=== PATIENT | female | born 1950 | race Caucasian/White ===

== ENCOUNTER 2019-09-28 15:15 | Inpatient (IN) | payer MEDICARE, MEDICAID ==
[~2019-09-28] VITALS: Ht 157.5 cm; Wt 54.5 kg
[2019-09-28] MEDS ORDERED: ASPI-1152 PO (15:34)
[2019-09-28] MEDS ORDERED: ATOR10TA PO (15:34)
[2019-09-28] MEDS ORDERED: AMLO5TAB9 PO (15:34)
[2019-09-28] MEDS ORDERED: CYAN-51 PO (15:34)
[2019-09-28] MEDS ORDERED: METF500T20 PO (15:34)
[2019-09-28] MEDS ORDERED: ZOLP5TAB8 PO (15:34)
[2019-09-28] MEDS ORDERED: RISP0.253 PO ×2 (15:35)
[2019-09-28] MEDS ORDERED: risperiDONE 1 MG TABLET ONE (16:25)
[2019-09-28] MEDS ORDERED: risperiDONE 0.25 MG TABLET PO ONE ×2 (16:26→16:30)
[2019-09-28 16:34] LABS: BASOPHILS # (AUTO) 0.1 /CMM (0.0-0.2); EOSINOPHILS % (AUTO) 1.6 % (0.0-6.0); HEMATOCRIT 39 % (33-45); HEMOGLOBIN 12.6 g/dL (11.5-14.8); LYMPHOCYTES # (AUTO) 1.4 /CMM (0.8-4.8); LYMPHOCYTES % (AUTO) 23.1 % (20.0-44.0); MEAN CORPUSCULAR HGB CONC 33 g/dl (31.0-36.0); MEAN CORPUSCULAR VOLUME 86 fL (82-100); MONOCYTES # (AUTO) 0.4 /CMM (0.1-1.30); MONOCYTES % (AUTO) 6.5 % (2.0-12.0); NEUTROPHILS # (AUTO) 3.9 /CMM (1.8-8.9); NEUTROPHILS % (AUTO) 66.8 % (43.0-81.0); PLATELET COUNT (AUTO) 293 /CMM (150-450); RED BLOOD CELL COUNT(AUTO) 4.54 MIL/uL (4.0-5.2); WHITE BLOOD COUNT (AUTO) 5.8 K/uL (4.3-11.0)
[2019-09-28 16:35] LABS: APPEARANCE,URINE Slightly Cloudy (CLEAR); BILIRUBIN,URINE Negative (NEGATIVE); BLOOD, URINE Trace-intact Ery/uL (NEGATIVE); COLOR,URINE Light yellow (YELLOW); KETONES,URINE Negative (NEGATIVE); LEUKOCYTE ESTERASE ,URINE Negative (NEGATIVE); NITRITE, URINE Positive (NEGATIVE); PH,URINE 6.5 (5.0-8.0); PROTEIN,URINE Negative (NEGATIVE); UGLUCOSE Negative (NEGATIVE); UROBILINOGEN,URINE 0.2 EU/dL (0.2)
--- NOTE | 2019-09-28 16:37 | NUR ---
Patient awake alert noted calm non distress med given ,lab draws done continue to monitor
[2019-09-28 16:46] LABS: CALCIUM, SERUM 9.2 mg/dL (8.5-10.1); CARBON DIOXIDE 27 mmol/L (21-32); CHLORIDE 107 mmol/L (98-107); CREATININE 0.7 mg/dL (0.6-1.3); GLUCOSE 101 mg/dL (74-106); POTASSIUM 3.8 mmol/L (3.5-5.1); SODIUM SERUM 143 mmol/L (136-145); UREA NITROGEN, BLOOD 18 mg/dL (7-18)
[2019-09-28 16:47] LABS: BACTERIA,URINE 4+ /HPF (None Seen); SQUAMOUS EPITHELIAL CELL,UR Few /HPF (None Seen)
[2019-09-28 17:00] LABS: ACETAMINOPHEN < 2 ug/ml (10-30); ALANINE AMINOTRANSFERASE 26 U/L (12-78); ALBUMIN 3.6 g/dL (3.4-5.0); ALCOHOL, BLOOD < 3 mg/dL (0-0); ALKALINE PHOSPHATASE 89 U/L (46-116); ASPARTATE AMINOTRANSFERASE 18 U/L (15-37); BILIRUBIN,DIRECT 0.1 mg/dL (0.0-0.2); BILIRUBIN,TOTAL 0.3 mg/dL (0.2-1.0); SALICYLATE 1.1 mg/dL (2.8-20.0); TOTAL PROTEIN, SERUM 6.8 g/dL (6.4-8.2)
--- NOTE | 2019-09-28 18:45 | NUR ---
Patient alert to name and confused @ time no agitation @ this time continue to monitor
--- NOTE | 2019-09-28 19:14 | NUR ---
DR. JARQUIN NOTIFIED OF PATIENT'S 0122.
--- NOTE | 2019-09-28 19:20 | NUR ---
Mattress Renovator @ bedside
--- NOTE | 2019-09-28 19:21 | NUR ---
Patient now is 5150 given report to Benito manceraRN
--- NOTE | 2019-09-28 19:32 | NUR ---
BED ASSIGNMENT 219T
--- NOTE | 2019-09-28 19:41 | NUR ---
REPORT GIVEN TO BRIGHT LOZANO
[2019-09-28 20:00] VITALS: BP 130/70
[2019-09-28] MEDS ORDERED: ZOLPIDEM TARTRATE 5 MG TABLET PO PRN (20:00)
[2019-09-28 20:05] VITALS: BP 134/69
[2019-09-28] MEDS ORDERED: MAGNESIUM HYDROXIDE 30 ML UDC PO PRN (20:30)
[2019-09-28] MEDS ORDERED: ACETAMINOPHEN 325 MG TABLET PO PRN (20:30)
[2019-09-28] MEDS ORDERED: BLOOD SUGAR DIAGNOSTIC 1 EACH STRIP IN ONE (20:30)
[2019-09-28] MEDS ORDERED: MAG HYDROX/AL HYDROX/SIMETH 30 ML UDC PO PRN (20:30)
[2019-09-28] MEDS ORDERED: QUETIAPINE FUMARATE 25 MG TABLET PO PRN (21:00)
[2019-09-28] MEDS ORDERED: QUETIAPINE FUMARATE 25 MG TABLET PO SCH (21:00)
[2019-09-28] MEDS: CEPHALEXIN MONOHYDRATE 500 MG CAPSULE PO SCH (21:39)
[2019-09-28] MEDS: ATORVASTATIN 10 MG TABLET PO SCH (21:40)
--- NOTE | 2019-09-28 23:56 | NUR ---
ADMISSION NOTES: ADMITTED THIS 69Y/O FEMALE PATIENT ADMIT FROM [facility]/ INTALLIY FROM [facility] , PT ADMITTED TO GPS ON 5150 HOLD DANGER TO OTHERS , GRAVELY DISABLE , PER HOLD CONFUSED DISORGNIZED, DISORIENTED, REFUSING CARE, PT. ELOPED FROM THE FACILITY FOR 2 DAYS, AND PT. STATED I DONT KNOW WHY I AM HERE ,UPON FACE TO FACE ASSESSMENT PATIENT IS A&O X ,1 CONFUSED DISORGNIZED, DISORIENTED ANXIOUS, FLAT AFFECT, DISHELVED, ,EASILY GETS AGITATED, DENIES SI/HI AT THIS TIME , PT. IS POOR HISTORIAN, POOR INSIGHT ,POOR JUDGEMENT , PT. REFUSED TO TAKE SHOWER AT THIS TIME , PT. REFUSED TO SIGNS ADMISSION CONSENT PAPERS , DUE TO MENTAL STATUS CONFUSE , PT. REFUSED INTITAALY BODY SKIN ASSESSMENT, PER PT. MY SKIN IS FINE , ENCOURAGED, EXPLAINED RISKS AND BENEFITS STILL REFUSED , BOTH MD AWARE AND NOTIFIED OF THE ADMISSION, BELONGINGS CONTRABAND WERE DONE , NURSING ASSESSMENT DONE ,PT. RIGHTS DISCUSS BY AUTO DEALERSHIP PORTER , PROVIDE THE PT. WITH HANDBOOK, AND MEDICATIONS GUIDE, ENVIRONMENTAL SAFETY CHECK DONE, ENCOURAGED PT. VERBALIZED ANY FEELING CONCERN TO STAFF, ORIENT TO UNIT POLICY, NO ACUTE DISTRESS NOTED,VITAL SIGNS WNL ,DENIES ANY PAIN AT THIS TIME ,WILL CONTINUE TO MONITOR FOR Q15 SAFETY AND BEHAVIOR.
--- NOTE | 2019-09-29 05:53 | NUR ---
RN NOTES: PT. RESTING COMFORTABLY IN HER ROOM, NO ACUTE DISTRESS DISTRESS NOTED , NO BEHAVIOUR PROBLEM NOTED AT THIS TIME , WILL CONTINUE TO MONITOR.
[2019-09-29 07:12] LABS: ALBUMIN 3.4 g/dL (3.4-5.0); BILIRUBIN,TOTAL 0.4 mg/dL (0.2-1.0); CALCIUM, SERUM 8.9 mg/dL (8.5-10.1); CHOLESTEROL 153 mg/dL (<200); CREATININE 0.7 mg/dL (0.6-1.3); HDL CHOLESTEROL 49 mg/dL (40-60); LDL 80 mg/dL (0-99); POTASSIUM 3.8 mmol/L (3.5-5.1); TRIGLYCERIDES 165 mg/dL (30-150)
[2019-09-29 08:00] VITALS: BP 123/69
[2019-09-29] MEDS: METFORMIN XR 500 MG TAB.SR.24H PO SCH (08:20)
[2019-09-29] MEDS: CEPHALEXIN MONOHYDRATE 500 MG CAPSULE PO SCH (08:20)
[2019-09-29] MEDS: AMLODIPINE BESYLATE 5 MG TABLET PO SCH (08:21)
[2019-09-29] MEDS: CYANOCOBALAMIN 500 MCG TABLET PO SCH (08:21)
[2019-09-29] MEDS ORDERED: ASPIRIN EC 81 MG TABLET.DR PO SCH (09:00)
--- NOTE | 2019-09-29 12:43 | NUR ---
Caregiver Contact: SW called caregiver [facility] ([phone]) to receive collateral information in regarding the psychosocial assessment. Caregiver was able to give minimal information. Caregiver stated that pt can return to [facility] ([phone]).
--- NOTE | 2019-09-29 12:46 | NUR ---
Initial Discharge Plan: Pt currently resides at [facility] located at [address] [place] [address]; ([phone]). EVELYNE spoke with pts caregiver [facility] ([phone]) and she stated that pt can return to the facility. EVELYNE will work with the pt and the MD regarding appropriate discharge planning. EVELYNE will form a safe and proper discharge.
[2019-09-29 15:58] VITALS: BP 108/59
[2019-09-29] MEDS: OLANZAPINE 2.5 MG TABLET PO SCH (17:20)
[2019-09-29] MEDS: DIVALPROEX SODIUM 125 MG TABLET.DR PO SCH (17:20)
[2019-09-29 20:12] VITALS: BP 111/59
[2019-09-29] MEDS: ZOLPIDEM TARTRATE 5 MG TABLET PO PRN (21:38)
[2019-09-29] MEDS: ATORVASTATIN 10 MG TABLET PO SCH (21:38)
[2019-09-30 08:00] VITALS: BP 120/68
[2019-09-30] MEDS: OLANZAPINE 2.5 MG TABLET PO SCH ×2 (08:22→16:40)
[2019-09-30] MEDS: CYANOCOBALAMIN 500 MCG TABLET PO SCH (08:22)
[2019-09-30] MEDS: METFORMIN XR 500 MG TAB.SR.24H PO SCH (08:23)
[2019-09-30] MEDS: AMLODIPINE BESYLATE 5 MG TABLET PO SCH (08:23)
[2019-09-30] MEDS: DIVALPROEX SODIUM 125 MG TABLET.DR PO SCH ×2 (08:23→16:40)
[2019-09-30] MEDS: CEPHALEXIN MONOHYDRATE 500 MG CAPSULE PO SCH ×2 (11:03→21:32)
[2019-09-30 16:00] VITALS: BP 122/59
[2019-09-30 20:14] VITALS: BP 115/50
[2019-09-30] MEDS: ATORVASTATIN 10 MG TABLET PO SCH (21:32)
[2019-10-01] MEDS ORDERED: ASPIRIN 325 MG TABLET ONE (00:15)
[2019-10-01 08:00] VITALS: BP 113/84
[2019-10-01] MEDS: CEPHALEXIN MONOHYDRATE 500 MG CAPSULE PO SCH ×2 (08:25→20:41)
[2019-10-01] MEDS: AMLODIPINE BESYLATE 5 MG TABLET PO SCH (08:25)
[2019-10-01] MEDS: CYANOCOBALAMIN 500 MCG TABLET PO SCH (08:25)
[2019-10-01] MEDS: DIVALPROEX SODIUM 125 MG TABLET.DR PO SCH ×3 (08:25→20:41)
[2019-10-01] MEDS: OLANZAPINE 2.5 MG TABLET PO SCH (08:25)
[2019-10-01] MEDS: METFORMIN XR 500 MG TAB.SR.24H PO SCH (08:25)
[2019-10-01 16:00] VITALS: BP 126/55
[2019-10-01 20:30] VITALS: BP 99/51
[2019-10-01] MEDS: OLANZAPINE 5 MG TABLET PO SCH (20:45)
[2019-10-01] MEDS: ATORVASTATIN 10 MG TABLET PO SCH (21:04)
[2019-10-01] MEDS: ZOLPIDEM TARTRATE 5 MG TABLET PO PRN (21:04)
[2019-10-02 08:00] VITALS: BP 119/54
[2019-10-02] MEDS: METFORMIN XR 500 MG TAB.SR.24H PO SCH (08:26)
[2019-10-02] MEDS: CYANOCOBALAMIN 500 MCG TABLET PO SCH (08:26)
[2019-10-02] MEDS: DIVALPROEX SODIUM 125 MG TABLET.DR PO SCH ×3 (08:26→21:17)
[2019-10-02] MEDS: CEPHALEXIN MONOHYDRATE 500 MG CAPSULE PO SCH ×2 (08:26→21:24)
[2019-10-02] MEDS: AMLODIPINE BESYLATE 5 MG TABLET PO SCH (08:27)
[2019-10-02] MEDS ORDERED: OLANZAPINE 2.5 MG TABLET PO SCH (09:00)
[2019-10-02 16:00] VITALS: BP 113/67
[2019-10-02 20:17] VITALS: BP 124/65
[2019-10-02] MEDS: OLANZAPINE 5 MG TABLET PO SCH (21:24)
[2019-10-02] MEDS: ATORVASTATIN 10 MG TABLET PO SCH (22:03)
[2019-10-02] MEDS: ZOLPIDEM TARTRATE 5 MG TABLET PO PRN (22:05)
--- NOTE | 2019-10-02 22:06 | NUR ---
AMBIEN 5MG 1 TAB PO ADMINISTERED PRN FOR SLEEP PER PATIENT REQUEST AT 2205
--- NOTE | 2019-10-02 23:31 | NUR ---
REASSESSED PT AT 2305. PT SLEEPING, RESPIRATION EVEN AND UNLABORED, NO S/S OF DISTRESS. WILL CONTINUE TO MONITOR.
--- NOTE | 2019-10-03 07:14 | NUR ---
PT AWAKE, ALERT AND ORIENTED X2. PACING HALLWAY, INTERMITTENTLY CONFUSED, FOLLOWS REDIRECTION. NO S/S OF DISTRESS. ENDORSED TO NEXT SHIFT.
[2019-10-03 08:00] VITALS: BP 129/71
[2019-10-03] MEDS: CYANOCOBALAMIN 500 MCG TABLET PO SCH (08:20)
[2019-10-03] MEDS: DIVALPROEX SODIUM 125 MG TABLET.DR PO SCH ×3 (08:20→20:57)
[2019-10-03] MEDS: AMLODIPINE BESYLATE 5 MG TABLET PO SCH (08:20)
[2019-10-03] MEDS: METFORMIN XR 500 MG TAB.SR.24H PO SCH (08:20)
[2019-10-03] MEDS: CEPHALEXIN MONOHYDRATE 500 MG CAPSULE PO SCH (08:20)
[2019-10-03] MEDS: OLANZAPINE 2.5 MG TABLET PO SCH (08:22)
[2019-10-03 16:00] VITALS: BP 102/60
--- NOTE | 2019-10-03 19:16 | NUR ---
GPS/RN NOTE: PATIENT IN BED AWAKE, ALERT AND ORIENTED X2, NOT IN ANY FORM OF DISTRESS. SAFETY PRECAUTIONS IMPLEMENTED. WILL CONTINUE TO MONITOR PT'S SAFETY AND BEHAVIOR.
[2019-10-03 20:38] VITALS: BP 119/68
[2019-10-03] MEDS: OLANZAPINE 5 MG TABLET PO SCH (20:57)
[2019-10-03] MEDS: ATORVASTATIN 10 MG TABLET PO SCH (21:01)
[2019-10-03 21:43] VITALS: BP 128/63
[2019-10-04 08:00] VITALS: BP 103/73
[2019-10-04] MEDS: OLANZAPINE 2.5 MG TABLET PO SCH (08:17)
[2019-10-04] MEDS: AMLODIPINE BESYLATE 5 MG TABLET PO SCH (08:17)
[2019-10-04] MEDS: CYANOCOBALAMIN 500 MCG TABLET PO SCH (08:17)
[2019-10-04] MEDS: DIVALPROEX SODIUM 125 MG TABLET.DR PO SCH ×3 (08:17→21:20)
[2019-10-04] MEDS: METFORMIN XR 500 MG TAB.SR.24H PO SCH (08:17)
[2019-10-04 16:00] VITALS: BP 103/59
[2019-10-04] MEDS: OLANZAPINE 5 MG TABLET PO SCH (21:19)
[2019-10-04] MEDS: ATORVASTATIN 10 MG TABLET PO SCH (21:20)
[2019-10-05 08:00] VITALS: BP 109/51
[2019-10-05 08:04] LABS: VALPROIC ACID 68 ug/mL (50-100)
[2019-10-05] MEDS: OLANZAPINE 2.5 MG TABLET PO SCH (08:19)
[2019-10-05] MEDS: DIVALPROEX SODIUM 125 MG TABLET.DR PO SCH ×3 (08:19→20:59)
[2019-10-05] MEDS: METFORMIN XR 500 MG TAB.SR.24H PO SCH (08:19)
[2019-10-05] MEDS: AMLODIPINE BESYLATE 5 MG TABLET PO SCH (08:20)
[2019-10-05] MEDS: CYANOCOBALAMIN 500 MCG TABLET PO SCH (08:20)
[2019-10-05 08:57] LABS: ALANINE AMINOTRANSFERASE 23 U/L (12-78); ASPARTATE AMINOTRANSFERASE 25 U/L (15-37)
[2019-10-05 16:00] VITALS: BP 102/71
[2019-10-05 20:56] VITALS: BP 116/67
[2019-10-05] MEDS ORDERED: OLANZAPINE 2.5 MG TABLET PO SCH (21:00)
[2019-10-05] MEDS: ATORVASTATIN 10 MG TABLET PO SCH (21:06)
[2019-10-06] MEDS: ZOLPIDEM TARTRATE 5 MG TABLET PO PRN (00:59)
[2019-10-06 08:00] VITALS: BP 116/75
[2019-10-06] MEDS: METFORMIN XR 500 MG TAB.SR.24H PO SCH (08:18)
[2019-10-06] MEDS: CYANOCOBALAMIN 500 MCG TABLET PO SCH (08:18)
[2019-10-06] MEDS: DIVALPROEX SODIUM 125 MG TABLET.DR PO SCH ×3 (08:18→20:59)
[2019-10-06] MEDS: AMLODIPINE BESYLATE 5 MG TABLET PO SCH (08:18)
[2019-10-06] MEDS: OLANZAPINE 2.5 MG TABLET PO SCH (08:23)
[2019-10-06] MEDS ORDERED: ENOXAPARIN SODIUM 40 MG/0.4 ML DISP.SYRIN SQ SCH (12:30)
[2019-10-06] MEDS: ENOXAPARIN SODIUM 40 MG/0.4 ML DISP.SYRIN SQ SCH (13:01)
[2019-10-06 16:00] VITALS: BP 112/74
[2019-10-06 20:07] VITALS: BP 116/63
[2019-10-06] MEDS: ATORVASTATIN 10 MG TABLET PO SCH (21:00)
[2019-10-06] MEDS: OLANZAPINE 5 MG TABLET PO SCH (21:00)
[2019-10-07 08:00] VITALS: BP 114/52
[2019-10-07] MEDS: CYANOCOBALAMIN 500 MCG TABLET PO SCH (09:03)
[2019-10-07] MEDS: METFORMIN XR 500 MG TAB.SR.24H PO SCH (09:03)
[2019-10-07] MEDS: OLANZAPINE 2.5 MG TABLET PO SCH (09:03)
[2019-10-07] MEDS: ENOXAPARIN SODIUM 40 MG/0.4 ML DISP.SYRIN SQ SCH (09:03)
[2019-10-07] MEDS: DIVALPROEX SODIUM 125 MG TABLET.DR PO SCH ×3 (09:04→21:04)
[2019-10-07] MEDS ORDERED: ENOXAPARIN SODIUM 40 MG/0.4 ML DISP.SYRIN SQ SCH (13:00)
[2019-10-07 16:00] VITALS: BP 104/73
[2019-10-07 20:27] VITALS: BP 113/63
[2019-10-07] MEDS: ATORVASTATIN 10 MG TABLET PO SCH (21:04)
[2019-10-07] MEDS: OLANZAPINE 5 MG TABLET PO SCH (21:05)
[2019-10-08 08:00] VITALS: BP 109/54
[2019-10-08] MEDS: CYANOCOBALAMIN 500 MCG TABLET PO SCH (08:34)
[2019-10-08] MEDS: ENOXAPARIN SODIUM 40 MG/0.4 ML DISP.SYRIN SQ SCH (08:34)
[2019-10-08] MEDS: DIVALPROEX SODIUM 125 MG TABLET.DR PO SCH ×3 (08:34→20:44)
[2019-10-08] MEDS: METFORMIN XR 500 MG TAB.SR.24H PO SCH (08:34)
[2019-10-08] MEDS: OLANZAPINE 2.5 MG TABLET PO SCH (08:35)
--- NOTE | 2019-10-08 13:33 | NUR ---
Facility Contact: SW called [facility] ([phone]) and spoke to Diane who stated that the pt can come back to the facility the next day and stated that the SW should call back later to speak to GG regarding transportation.
--- NOTE | 2019-10-08 15:05 | NUR ---
SS Group Note: SW went to patient's room to invite patient to attend today's support group at 1:00pm regarding gratefulness and holiday sensory activity being held in the activities room. Patient presented laying on her bed sleeping. SW attempted to wake patient but they remained sleeping.
--- NOTE | 2019-10-08 15:44 | NUR ---
Facility Contact: SW called [facility] ([phone]) and spoke to Diane who stated that she will arrange transportation with ambulance tomorrow around 11AM.
[2019-10-08 16:00] VITALS: BP 116/69
[2019-10-08] MEDS: OLANZAPINE 5 MG TABLET PO SCH (20:44)
[2019-10-08] MEDS: ATORVASTATIN 10 MG TABLET PO SCH (20:44)
[2019-10-08 22:10] VITALS: BP 121/62
[2019-10-09 08:00] VITALS: BP 114/58
[2019-10-09] MEDS ORDERED: OLANZAPINE 2.5 MG TABLET PO SCH (09:00)
[2019-10-09] MEDS: METFORMIN XR 500 MG TAB.SR.24H PO SCH (09:05)
[2019-10-09] MEDS: ENOXAPARIN SODIUM 40 MG/0.4 ML DISP.SYRIN SQ SCH (09:05)
[2019-10-09] MEDS: DIVALPROEX SODIUM 125 MG TABLET.DR PO SCH (09:06)
[2019-10-09] MEDS: CYANOCOBALAMIN 500 MCG TABLET PO SCH (09:06)
--- NOTE | 2019-10-09 09:15 | NUR ---
RN NOTE: CALLED DR. CAVANAUGH'S OFFICE AND LEFT MESSAGE WITH ASSITANT TO CALL [facility] FOR DISCHARGE ORDERS. AWAITING FOR CALL BACK.
--- NOTE | 2019-10-09 09:21 | NUR ---
RN NOTE: CONTACTED DR. CAVANAUGH REGARDING DISCHARGE ORDERS, LEFT MESSAGE TO CALL BACK [facility]. AWAITING FOR CALL BACK.
--- NOTE | 2019-10-09 10:00 | NUR ---
RN NOTE: PAGED DR. OSORIO REGARDING DISCHARGE ORDERS. AWAITNG FOR CALL BACK.
--- NOTE | 2019-10-09 10:18 | NUR ---
RN NOTE: DR. OSORIO RETURNED CALL BACK, ASKED MD FOR DISCHARGE ORDERS DUE TO DR CAVANAUGH NOT RETURNING CALL BACK. PER DR. OSORIO, CONTINUE TO CALL DR. CAVANAUGH FOR DISCHARGE ORDERS.
--- NOTE | 2019-10-09 10:35 | NUR ---
RN NOTE: ATTEMPTED TO REACH DR. CAVANAUGH x3 AT , SPOKE WITH ROCK AND RELAYED MESSAGE REGARDING NEEDED DISCHARGE ORDERS, PATIENT TO BE PICKED UP AT 1130. TO FOLLOW UP WITH PATIENT'S ORDERS AT [facility] [address] [place] [address] .
--- NOTE | 2019-10-09 11:18 | NUR ---
GPS/RN DR CAVANAUGH CALLED IN WITH THE D/C ORDERS. MEDS CALLED TO PT'S PHARMACY [phone] /MARTIN BARNEY
--- NOTE | 2019-10-09 11:52 | NUR ---
DRY KILN BURNER NOTE: PATIENT IS A 69 YEAR OLD FEMALE DISCHARGED TO [facility] LOCATED AT [address] [place] [id number] . PATIENT IS IN STABLE CONDITION. VSS. NO ACUTE DISTRESS NOTED. NO COMPLAINTS. COMPLIANT WITH MEDICATION MANAGEMENT. COOPERATIVE WITH PLAN OF CARE. PSYCHIATRIC TREATMENT PLANS MET. MEDICAL TREATMENT PLANS DEFERRED FOR CONTINUAL MONITORING. DENIES SI/HI VAH AT THE TIME OF DISCHARGE. PATIENT REFUSED SKIN CHECK, STATES "NO THANKS." EDUCATED PATIENT ABOUT AFTERCARE WITH COPY PROVIDED. RETURNED PERSONAL BELONGINGS TO PATIENT. MEDICATIONS RECONCILED WITH ALONG WITH PSYCHIATRIC DISCHARGE ORDERS. DISCHARGE PAPERWORK SIGNED. FOR FOLLOW UP WITH PSYCHIATRIST AND SADDLE AND HARNESS MAKER WITHIN 1 WEEK. PATIENT LEFT THE [facility] VIA GURNEY WITH [facility] AT 1136.
--- NOTE | 2019-10-09 16:21 | NUR ---
Discharge Note: Pt was discharged to [facility] located at [address] [place] [address]; ([phone]). Pt was picked up by [facility] arranged by the facility at 11AM. Pts caregiver Madhu ([phone]) was notified of the discharge. Upon discharge, pts mood was euthymic with congruent affect. Pt denied visual/auditory hallucinations and denied suicidal/homicidal ideations. Pt will continue to be under the care of her psychiatrist, Dr. Lucero, located at [address] [place] [address]; and her beater lead, Dr. Walter, located at [address], [place] [address]; .
== END 2019-10-09 11:36 | DRG 885 ==
LOC: ER 15:22 → GPS 19:38
PROVIDERS: ADMIT Psychiatry & Neurology Psychiatry; ATTEND Internal Medicine
DX: F25.9 Schizoaffective disorder, unspecified (principal); F29 Unspecified psychosis not due to a substance or known physiological condition; G31.84 Mild cognitive impairment of uncertain or unknown etiology; F31.9 Bipolar disorder, unspecified; I10 Essential (primary) hypertension; E11.9 Type 2 diabetes mellitus without complications; R63.4 Abnormal weight loss; Z68.22 Body mass index [BMI] 22.0-22.9, adult; R82.71 Bacteriuria; E78.5 Hyperlipidemia, unspecified
CPT/HCPCS: 36415; 80048-TC; 80053-TC; 80061-TC; 80076-TC; 80164-TC; 80305; 81000-TC; 82962-TC; 84450-TC; 84460-TC; 85025-TC; 87081-TC; 87086-TC; 87186-TC; G0480; J1650

== ENCOUNTER 2021-11-04 10:30 | Inpatient (IN) | payer MEDICARE, OTHER ==
[~2021-11-04] VITALS: Ht 165.1 cm; Wt 61.7 kg
[~2021-11-04 10:30] MED LIST: AMLO-212 PO; ASPI-1420 PO; ATOR10TA PO; CYAN-51 PO; METF-881 PO; ZOLP5TAB8 PO
--- NOTE | 2021-11-04 10:40 | NUR ---
The patient is mani, from [facility], found in the bathroom floor, unwitnessed fall. Denies trauma. Denies pain. Oxygen saturation in room air is at 90%. The patient is placed on oxygen at 2L/min via nasal cannula and saturation improved to 95%. Attached to the monitor. Warm blanket provided for comfort. Will continue to monitor the patient.
--- NOTE | 2021-11-04 10:48 | NUR ---
SEEN AND EXAMINED BY
--- NOTE | 2021-11-04 10:55 | NUR ---
PT IV LINE ESTABLISHED BLOOD DRAWN AND SENT TO THE LAB.
[2021-11-04] MEDS ORDERED: IV LR 1000 ML 1,000 ML BAG IV ONE (11:00)
--- NOTE | 2021-11-04 11:02 | NUR ---
THE PATIENT IS TAKEN TO CT VIA RNEY
[2021-11-04 11:15] LABS: BASOPHILS % (AUTO) 0.2 % (0.0-2.0); EOSINOPHILS % (AUTO) 0.1 % (0.0-6.0); HEMATOCRIT 42 % (33-45); LYMPHOCYTES # (AUTO) 0.4 K/uL (0.8-4.8); LYMPHOCYTES % (AUTO) 4.3 % (20.0-44.0); MEAN CORPUSCULAR HGB CONC 33 g/dl (31.0-36.0); MEAN CORPUSCULAR VOLUME 91 fL (82-100); MONOCYTES # (AUTO) 0.4 K/uL (0.1-1.30); MONOCYTES % (AUTO) 4.5 % (2.0-12.0); NEUTROPHILS # (AUTO) 9.1 K/uL (1.8-8.9); NEUTROPHILS % (AUTO) 90.9 % (43.0-81.0); PLATELET COUNT (AUTO) 186 K/uL (150-450); RED BLOOD CELL COUNT(AUTO) 4.61 MIL/uL (4.0-5.2)
--- NOTE | 2021-11-04 11:15 | NUR ---
THE PATIENT IS BACK FROM CT
[2021-11-04 11:30] LABS: ALANINE AMINOTRANSFERASE 35 U/L (12-78); ALBUMIN 3.2 g/dL (3.4-5.0); ALKALINE PHOSPHATASE 72 U/L (46-116); ASPARTATE AMINOTRANSFERASE 31 U/L (15-37); BILIRUBIN,DIRECT 0.1 mg/dL (0.0-0.2); BILIRUBIN,TOTAL 0.4 mg/dL (0.2-1.0); CALCIUM, SERUM 9.3 mg/dL (8.5-10.1); CARBON DIOXIDE 27 mmol/L (21-32); CHLORIDE 106 mmol/L (98-107); CREATININE 1.1 mg/dL (0.6-1.3); GLUCOSE 110 mg/dL (74-106); POTASSIUM 4.2 mmol/L (3.5-5.1); SODIUM SERUM 143 mmol/L (136-145); TOTAL PROTEIN, SERUM 7.2 g/dL (6.4-8.2); UREA NITROGEN, BLOOD 23 mg/dL (7-18)
--- NOTE | 2021-11-04 11:46 | NUR ---
URINE COLLECTED AND SENT TO THE LAB
[2021-11-04] MEDS ORDERED: CEFTRIAXONE 1GM BAG (ER ONLY) 50 ML IV ONE (11:59)
[2021-11-04] MEDS ORDERED: CEFTRIAXONE 1 G in IV D5W 50 ML IV ONE (12:00)
[2021-11-04 12:13] LABS: BILIRUBIN,URINE NEGATIVE (NEGATIVE); COLOR,URINE YELLOW (YELLOW); LEUKOCYTE ESTERASE ,URINE NEGATIVE (NEGATIVE); NITRITE, URINE POSITIVE (NEGATIVE); PH,URINE 6.5 (5.0-8.0); PROTEIN,URINE NEGATIVE (NEGATIVE); UGLUCOSE NEGATIVE (NEGATIVE); UROBILINOGEN,URINE 0.2 EU/dL (0.2)
[2021-11-04 12:22] LABS: BACTERIA,URINE Many /HPF (None Seen); RBC,URINE 0-2 /HPF (0-2); SQUAMOUS EPITHELIAL CELL,UR Few /HPF (None Seen)
--- NOTE | 2021-11-04 15:08 | NUR ---
REQUESTED BED FROM NURSING SUP
--- NOTE | 2021-11-04 15:17 | NUR ---
spoke to Dr. Walter and said have [facility] MD to admit the patient, Dr. De La Cruz aware and will admit the patient.
[2021-11-04] MEDS ORDERED: IV LR 1000 ML 1,000 ML IV ONE (15:30)
--- NOTE | 2021-11-04 16:24 | NUR ---
ROOM 108
--- NOTE | 2021-11-04 16:29 | NUR ---
REPORT GIVEN TO NURSE RODAS FOR BLANQUITA
[2021-11-04] MEDS ORDERED: ONDANSETRON HCL/PF 4 MG/2 ML VIAL IVP PRN (16:30)
[2021-11-04] MEDS ORDERED: DEXTROSE 50%-WATER 50 ML DISP.SYRIN IV PRN (16:30)
[2021-11-04] MEDS ORDERED: ACETAMINOPHEN 325 MG TABLET PO PRN (16:30)
[2021-11-04] MEDS ORDERED: MAG HYDROX/AL HYDROX/SIMETH 30 ML UDC PO PRN (16:30)
[2021-11-04] MEDS ORDERED: Z GUARD REMEDY 2 OZ OINT TP PRN (16:30)
[2021-11-04] MEDS ORDERED: ZOLPIDEM TARTRATE 5 MG TABLET PO PRN (16:30)
[2021-11-04] MEDS ORDERED: HYDROCODONE/APAP 5/325MG TABLET PO PRN (16:30)
[2021-11-04] MEDS ORDERED: MAGNESIUM HYDROXIDE 30 ML UDC PO PRN (16:30)
--- NOTE | 2021-11-04 17:00 | NUR ---
THE PATIENT IS TRANSFERED TO 108 PER POLICY.
[2021-11-04] MEDS: BLOOD SUGAR DIAGNOSTIC 1 EACH STRIP IN SCH ×2 (17:43→22:07)
[2021-11-04] MEDS: IV NS 0.9% 1,000 ML IV SCH (17:43)
[2021-11-04] MEDS: CEFTRIAXONE 1 G in IV D5W 50 ML IV SCH (17:43)
[2021-11-04 18:00] VITALS: BP 155/95
--- NOTE | 2021-11-04 19:35 | NUR ---
RN OPENING NOTES RECEIVED PATIENT ON BED, AWAKE, ALERT AND VERBALLY RESPONSIVE, RESPIRATORY EVEN AND UNLABORED, ON ROOM AIR, NO SOB NOTED, DENIES PAIN, NO S/S OF DISTRESS NOTED, REMAIN AFEBRILE. SR ON IMPROVEMENT INTERN, HR-78. RESIDENT NOTED WITH LT. ARM G#18 INTACT, PATENT AND FLUSHED WITH NS, NO INFILTRATION NOTED IN SITE. S/P GLF WILL MONITOR FOR PAIN AND ANY CHANGE IN LOC. BED IN LOWEST POSITION, LOCKED, BED ALARM ARMED. ALL NEEDS ATTENDED. CALL LIGHT WITH IN REACH.
[2021-11-04 20:00] VITALS: BP 154/52
[2021-11-04] MEDS: INSULIN REGULAR, HUMAN 100 UNIT/ML 3 ML VIAL SQ PRN (22:07)
[2021-11-04] MEDS: ATORVASTATIN 10 MG TABLET PO SCH (23:03)
[2021-11-05] VITALS: BP 118/86
[2021-11-05 04:00] VITALS: BP 157/57
[2021-11-05] MEDS: IV NS 0.9% 1,000 ML IV SCH ×2 (05:50→20:08)
[2021-11-05 06:38] LABS: BASOPHILS % (AUTO) 0.4 % (0.0-2.0); HEMATOCRIT 37 % (33-45); HEMOGLOBIN 12.6 g/dL (11.5-14.8); LYMPHOCYTES # (AUTO) 1.1 K/uL (0.8-4.8); LYMPHOCYTES % (AUTO) 16.2 % (20.0-44.0); MEAN CORPUSCULAR HGB CONC 34 g/dl (31.0-36.0); MEAN CORPUSCULAR VOLUME 90 fL (82-100); MONOCYTES # (AUTO) 0.8 K/uL (0.1-1.30); MONOCYTES % (AUTO) 12.7 % (2.0-12.0); NEUTROPHILS # (AUTO) 4.7 K/uL (1.8-8.9); NEUTROPHILS % (AUTO) 69.7 % (43.0-81.0); PLATELET COUNT (AUTO) 163 K/uL (150-450); RED BLOOD CELL COUNT(AUTO) 4.11 MIL/uL (4.0-5.2); WHITE BLOOD COUNT (AUTO) 6.7 K/uL (4.3-11.0)
--- NOTE | 2021-11-05 07:10 | NUR ---
RN OPENING NOTE RECEIVE REPORT FROM SAFETY EQUIPMENT TESTER NURSE. PATIENT IN STABLE CONDITION AT TIME OF REPORT. ON 2L/MIN WITH O2 SAT OF 98% AND ABOVE. WILL FOLLOW UP AM LABS AND DOCTOR ORDERS. PROPER ISOLATION PRECAUTION IN PLACE. ALL SAFETY MEASURE IN PLACE. BED ON LOWEST POSITION WITH HOB ELEVATED. CALL LIGHT WITHIN REACH. WILL CONTINUE TO MONITOR.
[2021-11-05 07:14] LABS: CALCIUM, SERUM 8.2 mg/dL (8.5-10.1); CREATININE 0.9 mg/dL (0.6-1.3); PHOSPHORUS 3.4 mg/dL (2.5-4.9); POTASSIUM 3.2 mmol/L (3.5-5.1)
--- NOTE | 2021-11-05 07:19 | NUR ---
RN OPENING NOTES PATIENT SLEEPING ON BED , RESPIRATORY EVEN AND UNLABORED, ON ROOM AIR, NO SOB NOTED, DENIES PAIN, NO S/S OF DISTRESS NOTED, REMAIN AFEBRILE. SR ON SAFETY AND HEALTH CONSULTANT, HR-72. RESIDENT NOTED WITH LT. ARM G#18 INTACT, PATENT AND FLUSHED WITH NS, NO INFILTRATION NOTED IN SITE. ALL DUE MEDS GIVEN ORDERED. BLOOD SUGAR CHECK DONE, NO S/S OF HYPO/HYPERGLYCEMIA NOTED. BED IN LOWEST POSITION, LOCKED, BED ALARM ARMED. ALL NEEDS ATTENDED. CALL LIGHT WITH IN REACH. Addendum: 11/05/21 at 0722 by TAMIKO NICOLE RN RN CLOSING NOTES
[2021-11-05 07:23] LABS: THYROID STIMULATING HORMONE 0.583 uIU/mL (0.358-3.74)
[2021-11-05] MEDS: PANTOPRAZOLE 40 MG TABLET.DR PO SCH (07:58)
[2021-11-05] MEDS: BLOOD SUGAR DIAGNOSTIC 1 EACH STRIP IN SCH ×4 (07:58→22:25)
[2021-11-05 08:00] VITALS: BP 118/83
[2021-11-05] MEDS: METFORMIN XR 500 MG TAB.SR.24H PO SCH (08:34)
[2021-11-05] MEDS: ASPIRIN EC 81 MG TABLET.DR PO SCH (08:34)
[2021-11-05] MEDS ORDERED: POTASSIUM CHLORIDE 20 MEQ TAB.PRT.SR PO ONE (11:00)
[2021-11-05] MEDS ORDERED: TRAZ-182 PO (11:22)
[2021-11-05] MEDS ORDERED: RISP0.2515 PO (11:22)
[2021-11-05] MEDS ORDERED: BENZ0.5T43 PO (11:22)
[2021-11-05] MEDS ORDERED: OLAN10TA3 PO (11:22)
[2021-11-05] MEDS ORDERED: DIVA125C5 PO (11:22)
[2021-11-05] MEDS ORDERED: OLAN15TA3 PO (11:22)
[2021-11-05] MEDS ORDERED: LOSA25TA27 PO (11:22)
[2021-11-05] MEDS ORDERED: MIRT-90 PO (11:22)
[2021-11-05 12:00] VITALS: BP 129/66
[2021-11-05] MEDS: INSULIN REGULAR, HUMAN 100 UNIT/ML 3 ML VIAL SQ PRN (12:20)
[2021-11-05] MEDS: CEFTRIAXONE 1 G in IV D5W 50 ML IV SCH (15:35)
[2021-11-05 16:00] VITALS: BP 117/76
--- NOTE | 2021-11-05 19:09 | NUR ---
NURSE CLOSING NOTE PATIENT IN STABLE CONDITION THROUGH OUT SHIFT. REMAIN ON 2L/MIN VIA NC. ECHOCARDIOGRAM WAS DONE. POTASSIUM CHLORIDE WAS GIVEN PER DOCTOR ORDER. PT EVALUATION WAS DONE. PATIENT AMBULATE TO RESTROOM. PROPER ISOLATION PRECAUTION IN PLACE. ALL SAFETY MEASURE IN PLACE. BED ON LOWEST POSITION WITH HOB ELEVATED AND 3 SIDE RAIL UP. CALL LIGHT WITHIN REACH. WILL CONTINUE TO MONITOR AND GIVE REPORT TO MANIFEST CLERK NURSE.
--- NOTE | 2021-11-05 19:40 | NUR ---
RN NOTES RECEIVED CARE OF PATIENT WHILE PATIENT WAS SLEEPING IN BED, ABLE TO WAKE UP TO NAME, A/OX3, ABLE TO VERBALIZE NEEDS. PATIENT ON TELE MONITOR, NSR HR 75 AT THIS TIME. PATIENT ON 2L NC, O2 SAT 96%, NO SOB NOTED, NO DISTRESS NOTED. PATIENT HAS IV ACCESS ON LEFT ARM G#18 INTACT, PATENT AND FLUSHED WITH NS RUNNING AT 75 ML/HR, NO INFILTRATION NOTED IN SITE. BED IN LOWEST POSITION, LOCKED, BED ALARM ARMED, CALL LIGHT WITH IN REACH. WILL CONTINUE TO MONITOR FOR ANY CHANGES IN PATIENT'S CONDITION.
[2021-11-05 20:00] VITALS: BP 140/84
[2021-11-05] MEDS: ATORVASTATIN 10 MG TABLET PO SCH (22:13)
[2021-11-06] VITALS: BP 134/64
[2021-11-06 04:00] VITALS: BP 130/86
[2021-11-06 06:44] LABS: CALCIUM, SERUM 8.2 mg/dL (8.5-10.1); CREATININE 0.8 mg/dL (0.6-1.3); POTASSIUM 3.4 mmol/L (3.5-5.1)
--- NOTE | 2021-11-06 07:21 | NUR ---
RN CLOSING NOTES WILL ENDORSE PATIENT WHILE SLEEPING IN BED, ABLE TO WAKE UP TO NAME, A/OX3, ABLE TO VERBALIZE NEEDS. PATIENT ON TELE MONITOR, NSR HR 73 AT THIS TIME. PATIENT ON ROOM AIR O2 SAT 97%, NO SOB NOTED, NO DISTRESS NOTED. PATIENT HAS IV ACCESS ON LEFT ARM G#18 INTACT, PATENT AND FLUSHED WITH NS RUNNING AT 75 ML/HR, NO INFILTRATION NOTED IN SITE. BED IN LOWEST POSITION, LOCKED, BED ALARM ARMED, CALL LIGHT WITH IN REACH. WILL ENDORSE TO DAY SHIFT NURSE FOR BLANQUITA.
[2021-11-06] MEDS: BLOOD SUGAR DIAGNOSTIC 1 EACH STRIP IN SCH ×2 (07:41→11:24)
[2021-11-06] MEDS: INSULIN REGULAR, HUMAN 100 UNIT/ML 3 ML VIAL SQ PRN ×2 (07:49→11:43)
--- NOTE | 2021-11-06 07:49 | NUR ---
RN NOTES Blood sugar taken RESULTS SHOW 91. NO INSULIN GIVEN PER SLIDING SCALE.
--- NOTE | 2021-11-06 07:55 | NUR ---
RN OPENING NOTES RECEIVED PT AWAKE AND ALERT. A/O X 3. PT ON 2L NC. PT IS AMBULATORY W/ NURSE ASSIST. SKIN IS INTACT. LA G#18 INTACT AND PATENT. SAFETY MEASURES IN PLACE, BED IN LOWEST LOCKED POSITION, SIDE RAILS UP X 3. CALL LIGHT WITHIN REACH. WILL CONTINUE TO MONITOR.
[2021-11-06 08:00] VITALS: BP 135/84
[2021-11-06] MEDS: PANTOPRAZOLE 40 MG TABLET.DR PO SCH (08:21)
[2021-11-06] MEDS: METFORMIN XR 500 MG TAB.SR.24H PO SCH (08:21)
[2021-11-06] MEDS: ASPIRIN EC 81 MG TABLET.DR PO SCH (08:21)
[2021-11-06] MEDS: IV NS 0.9% 1,000 ML IV SCH (08:22)
[2021-11-06] MEDS ORDERED: POTASSIUM CHLORIDE 20 MEQ TAB.PRT.SR PO SCH (10:30)
[2021-11-06 12:00] VITALS: BP 128/73
--- NOTE | 2021-11-06 16:22 | NUR ---
DISTRIBUTION CENTER ASSOCIATE NOTES PT DC'D TO [facility] IN STABLE CONDITION. DC INSTRUCTIONS GIVEN AND EXPLAINED TO PT. VERBALIZED UNDERSTANDING. ALL PAPERWORKS SIGNED AND COMPLETED. ALL BELONGINGS SENT. IV ACCESS REMOVED. NO COMPLICATIONS NOTED. REPORT GIVEN TO AMBULANCE. PT LEFT IN STABLE CONDITION VIA GURNEY. PT ENDORSED TO AMBULANCE CREW ACCORDINGLY.
--- NOTE | 2021-11-07 11:57 | NUR ---
per dr. rivera call inprescription of BACTRIM DS PO ONE TABLET BID FOR 5 DAYS.
== END 2021-11-06 16:30 | DRG 690 ==
LOC: ER 10:37 → TELE1 16:41
DX: N39.0 Urinary tract infection, site not specified (principal); E87.2 Acidosis; J98.11 Atelectasis; W18.30XA Fall on same level, unspecified, initial encounter; Z20.822 Contact with and (suspected) exposure to COVID-19; I48.91 Unspecified atrial fibrillation; F03.90 Unspecified dementia, unspecified severity, without behavioral disturbance, psychotic disturbance, mood disturbance, and anxiety; I10 Essential (primary) hypertension; B96.20 Unspecified Escherichia coli [E. coli] as the cause of diseases classified elsewhere; E11.9 Type 2 diabetes mellitus without complications; E78.5 Hyperlipidemia, unspecified; F29 Unspecified psychosis not due to a substance or known physiological condition; Y93.9 Activity, unspecified; Y92.89 Other specified places as the place of occurrence of the external cause; Z79.84 Long term (current) use of oral hypoglycemic drugs
CPT/HCPCS: 36415; 70450-TC; 71045-TC; 72131-TC; 80048-TC; 80076-TC; 81001; 82550-TC; 83605-TC; 83735-TC; 84100-TC; 84443-TC; 84484-TC; 85025-TC; 87040-TC; 87081-TC; 87086-TC; 87186-TC; 93307-TC; 97116-TC; 97530-TC; G0378; J0696; J1815; J7030; J7060; J7120; U0003